=== PATIENT | female | born 1935 | race Caucasian/White ===

== ENCOUNTER 2021-07-20 19:25 | Emergency (ER) | payer OTHER, SELFPAY ==
--- NOTE | ~2021-07-20 | CT_ITS ---
EXAMINATION: CT brain wo con DATE: 07/20/2021 20:36 INDICATION: head injury TECHNIQUE: Computed tomography (CT) of the head was performed without intravenous contrast. The mA wa s adjusted according to patient size. Iterative reconstruction technique was employed. The dose-lengt h product was 605.33 mGy-cm. COMPARISON: None FINDINGS: No acute intracranial hemorrhage or extra-axial fluid collection. No hydrocephalus, mass, or herniation. No acute ischemic infarct. Unremarkable dural venous sinus attenuation. No acute osseous abnormality. Left frontal, bilateral ethmoid, left maxillary and sphenoid opacification. Suggestion of surrounding osseous sclerosis. Mild atrophy and chronic white matter change. Atherosclerotic arterial calcifications. IMPRESSION: No acute intracranial process. Chronic sinusitis. Reviewed, dictated and finalized at location K.
--- NOTE | ~2021-07-20 | CT_ITS ---
EXAMINATION: CT facial bones wo con DATE: 07/20/2021 20:36 INDICATION: facial injury . TECHNIQUE: Computed tomography (CT) of the facial bones and maxillofacial region was performed withou t intravenous contrast. Automated exposure control and iterative reconstruction technique were employ ed. The dose-length product was 270.03 mGy-cm. COMPARISON: None. FINDINGS: Soft Tissues: Soft tissue swelling over the left orbit and cheek. Facial bones: No acute fracture. No lytic or blastic process. Eyes: The globes are intact. The soft tissue planes of the orbits are maintained. Paranasal Sinuses: Mucosal thickening and retention cyst or polyp in the right maxillary sinus. Left maxillary, frontal, and bilateral ethmoid and sphenoid sinus opacification. Foreign Bodies: No radiopaque foreign bodies. Other Findings: None. IMPRESSION: No evidence of acute facial bone fracture. Chronic sinusitis. Reviewed, dictated and finalized at location K.
[2021-07-20 19:55] VITALS: BP 191/91; PULSE 67; RESP 18; TEMP 36.8; O2SAT 99
--- NOTE | 2021-07-20 20:19 | ED.FALL ---
HPI - Fall General Chief Complaint: Fall Stated Complaint: fall with eye pain Time Seen by Provider: 07/20/21 19:59 Source: patient, family, RN notes reviewed and old records reviewed Mode of arrival: ambulatory Limitations: no limitations History of Present Illness HPI Narrative: 85-year-old female presenting to the emergency department for evaluation of a left-sided facial injury after having a ground-level fall yesterday. Patient states she was getting out of her car when she miss stepped, tripped over her own feet fell and struck the left side of her face on the garage floor. Patient denies any loss of consciousness. Patient states she did slide on her face when she landed resulting in an abrasion over the left zygomatic arch. patient does take Xarelto. Over the course of the last 24 hours patient has developed a significant hematoma just inferior to the left eye. Patient has also had ecchymosis tracking above the left eye. Patient denies any headache. Patient denies any pain of the left eye. Patient denies any change in vision. Patient was concerned due to the increasing size of the hematoma since the initial time of injury. Patient is unsure why she takes Xarelto. Patient denies any prior history of LA. Patient denies any prior history of PE or DVT. Patient does have a history of hypertension and remote surgical history of hysterectomy. Related Data Home Medications Medication Instructions Recorded Confirmed allopurinol 300 mg PO DAILY 07/20/21 07/20/21 diclofenac sodium 75 mg PO BID 07/20/21 07/20/21 lisinopril 40 mg PO DAILY 07/20/21 07/20/21 lovastatin 20 mg PO HS 07/20/21 07/20/21 primidone 50 mg PO DAILY 07/20/21 07/20/21 propranolol 40 mg PO BID 07/20/21 07/20/21 Allergies Allergy/AdvReac Type Severity Reaction Status Date / Time Penicillins Allergy Unknown Verified 07/20/21 21:18 Review of Systems Review of Systems: CONSTITUTIONAL: Denies fever, chills, or sweats. EYES: Denies visual changes, redness, or discharge. ENT: Denies rhinorrhea, congestion, sore throat, or otalgia. CARDIOVASCULAR: Denies chest pain, palpitations, or edema. RESPIRATORY: Denies cough or dyspnea. GASTROINTESTINAL: Denies abdominal pain, nausea, vomiting, or diarrhea. GENITOURINARY: Denies dysuria or hematuria. SKIN: See HPI MUSCULOSKELETAL: Chronic right knee pain, no change since fall NEUROLOGIC: Denies headache, numbness, or weakness. Exam Narrative: APPEARANCE: Well appearing, no pain, no distress, well-nourished. HEAD: normocephalic, hematoma and inferior to left eye with ecchymosis tracking into left upper eyelid. No facial tenderness to palpation. No bony crepitus. EYES: PERRLA/EOMI, conjunctivae clear. No diplopia. NOSE: Normal no drainage NECK: Supple. No adenopathy, no masses. RESPIRATORY: Airway patent, respirations nonlabored. Clear to auscultation bilaterally, no rales, rhonchi, wheezing. CARDIOVASCULAR: Regular rate and rhythm without murmurs rubs or gallops. ABDOMINAL: Soft, nontender, nondistended, normal bowel sounds MUSCULOSKELETAL: Moves all extremities. Strength/ROM intact, No edema, No calf tenderness. NEURO: Alert. Cranial nerves II through XII intact. Grossly intact SKIN: Warm, dry. Normal Color Course Course Emergency Course: Head and facial CT were negative for acute findings. WBC 40.4, lymphocytes are 80%. Patient denies any prior history of lymphoma. Patient denies any complaints at this time. Patient was informed on her results and on the importance of close follow-up with her primary care physician regarding her lab abnormalities. Patient is also encouraged to follow-up for wound check. Patient was educated on reasons to return to the emergency department. All questions and concerns were addressed. Vital Signs Vital signs: Vital Signs Temperature 98.2 F 07/20/21 19:55 Pulse Rate 67 07/20/21 19:55 Respiratory Rate 18 07/20/21 19:55 Blood Pressure 191/91 H 07/20/21 19:55 Pulse Ox
[2021-07-20 20:59] LABS: Hematocrit 45.5 % (37.0-47.0); Hemoglobin 14.5 g/dL (12.0-15.0); Mean Corpuscular HGB Conc 31.9 g/dl (32-36); Mean Corpuscular Hemoglobin 31.3 pg (26-34); Mean Corpuscular Volume 98.3 fl (80-100); Mean Platelet Volume 9.3 fl (7.4-10.4); Platelet Count Result 151 k/mm3 (150-375); Red Blood Count 4.63 M/mm3 (4.2-5.4); Red Cell Distribution Width 13.4 % (11.5-14.5); White Blood Count 40.4 K/mm3 (4.5-10.0)
[2021-07-20 21:09] LABS: Alanine Aminotransferase 18 U/L (4-35); Albumin Level 4.7 g/dL (3.5-5.1); Alkaline Phosphatase 68 U/L (38-126); Anion Gap 5 mmol/L (8-16); Aspartate Amino Transferase 32 U/L (14-36); Bilirubin,Total 0.4 mg/dL (0.2-1.3); Blood Urea Nitrogen 30 mg/dL (7-17); Calcium 9.5 mg/dL (8.4-10.2); Carbon Dioxide 31 mmol/L (22-30); Chloride 105 mmol/L (98-107); Estimated CRCL calculation 41 ml/min; Estimated Glomerular Filt Rate > 60; Glucose 122 mg/dL (65-110); Potassium 4.3 mmol/L (3.4-5.0); Sodium 141 mmol/L (137-145)
[2021-07-20 21:10] LABS: INR 1.1; Prothrombin Time 13.4 Seconds (11.1-14.7)
[2021-07-20 21:11] LABS: Partial Thromboplastin Time 27.2 SECONDS (22.3-36.8)
[2021-07-20 21:24] LABS: Eosinophils Percent Manual 1 % (0-4); Lymphocytes Absolute Manual 32.32 K/mm3 (1.1-4.5); Monocytes Absolute Manual 1.61 K/mm3 (0.1-0.90); Monocytes Percent Manual 4 % (3-9); Neutrophils Percent Manual 15 % (46-73); Total Cells Counted 100
[2021-07-20 21:25] LABS: Platelet Estimate Adequate (Adequate)
[2021-07-20 21:26] LABS: Smudge Cells FEW
[2021-07-20 22:31] VITALS: BP 184/87; PULSE 72; RESP 18; O2SAT 94
== END 2021-07-20 22:33 | disposition home or self-care (01) ==
PROVIDERS: Emergency Provider Emergency Medicine; PCP Family Medicine
DX: S00.12XA Contusion of left eyelid and periocular area, initial encounter (principal); D72.829 Elevated white blood cell count, unspecified; D72.820 Lymphocytosis (symptomatic); I48.91 Unspecified atrial fibrillation; Z79.01 Long term (current) use of anticoagulants; W01.0XXA Fall on same level from slipping, tripping and stumbling without subsequent striking against object, initial encounter
CPT/HCPCS: 36415; 70450; 70486; 80053; 85025; 85610; 85730; 99284